=== PATIENT | female | born 1970 | race African-American/Black ===

== ENCOUNTER 2022-11-18 14:10 | Outpatient (REF) | payer MEDICAID, SELFPAY ==
--- NOTE | ~2022-11-18 | XR_ITS ---
EXAMINATION: XR LUMBOSACRAL SPINE WITH OBLIQUES CLINICAL INFORMATION: Dorsalgia COMPARISON: None available. TECHNIQUE: AP, both oblique, and lateral views of the lumbar spine. Lateral view of the lumbosacral junction. FINDINGS: There is maintained lumbar lordosis. There is loss of L4-L5 disc height with prosthesis at the L5-S1 disc level. There is a posterior hardware with bilateral pedicular screws at L5 and S1 vertebra with interconnecting rods. There is moderate stool seen throughout the colon. XR/XR lumbar spine 4V min IMPRESSION: Degenerative disc changes L4-L5 disc level with prosthesis at the L5-S1 disc level. There is a posterior hardware at L5-S1 vertebra with interconnecting rods.
== END 2022-11-18 14:11 | disposition home or self-care (01) ==
LOC: HO.HOSX 14:10
PROVIDERS: Visit Provider Physician Assistant
DX: M54.9 Dorsalgia, unspecified (principal)
CPT/HCPCS: 72110; 99212

== ENCOUNTER 2023-03-07 | Outpatient (REF) | payer MEDICAID, SELFPAY ==
--- NOTE | 2023-03-07 | ECG_ITS ---
Test Reason : preop Blood Pressure : / mmHG Vent. Rate : 063 BPM Atrial Rate : 063 BPM P-R Int : 184 ms QRS Dur : 086 ms QT Int : 412 ms P-R-T Axes : 049 015 011 degrees QTc Int : 421 ms Normal sinus rhythm Normal ECG No previous ECGs available Referred By: Es Taylor Electronically Signed By:KENAN MOYER
[2023-03-07 12:00] VITALS: BP 142/83; PULSE 70; RESP 16; O2SAT 99; BMI 32.7
--- NOTE | 2023-03-07 12:28 | P.CONAN_ITS ---
HPI - Anesthesia Eval Consult details Narrative: 52yo F for L4-L5 Transkambin Lumbar Interbody Fusion (ext of CTL screws), 03/20/23 No recent illness No CP/SOB with >4 mets PMFSH Active Problems Active Problems: All Active Problems (Updated 03/07/23 @ 12:25 by Esthela Cagle, RN) Back pain (Acute) Past Medical History Medical History (Updated 03/07/23 @ 12:25 by Esthela Cagle RN) Elevated cholesterol HTN (hypertension) Low back pain Right leg weakness Seasonal allergies Family History Family history of problems with anesthesia: No Surgical History Surgical History (Updated 03/07/23 @ 12:23 by Esthela Cagle RN) History of back surgery History of hysterectomy History of ovarian cystectomy Hx of breast reduction, elective History of Problems with Anesthesia: No Social History Social History Household Members Other:: daughter age-7 Are you a primary medicare insurance specialist to a significant other at home: Yes (daughter age 7, mom and sister will help post-op) Do you presently have visiting nurse or other home services: No Tobacco use type: Cigarette Use of substances other than those prescribed or required for medical reasons: No Have you been hit, kicked, punched, or otherwise hurt by someone within the past year? If so, by whom?: No Are you DNR?: No Advance Directives: No Advance Directives Information Provided: Yes Advance Directives on File: No Recently lost weight without trying: No Nutrition Risks: No Nutritional Risk Patient : No FDLMP: hx hysterectomy : No Poor oral hygiene: No Meds Allergies Allergy/AdvReac Type Severity Reaction Status Date / Time No Known Allergies Allergy Verified 03/07/23 12:20 Home Medications Medication Instructions Recorded Confirmed Last Taken Type amlodipine 10 mg tablet 5 mg PO DAILY 01/26/23 03/07/23 Unknown History chlorthalidone 25 mg tablet 25 mg PO DAILY 01/26/23 01/26/23 Unknown History losartan 25 mg tablet 25 mg PO DAILY 01/26/23 01/26/23 Unknown History montelukast 10 mg tablet 10 mg PO DAILY 01/26/23 01/26/23 Unknown History pregabalin 100 mg capsule 150 mg PO Q OTHER DAY 01/26/23 03/07/23 Unknown History indomethacin 25 mg capsule 25 mg PO DAILY 03/07/23 03/07/23 Unknown History tizanidine 4 mg tablet 2 - 4 mg PO Q8H 03/07/23 03/07/23 Unknown History Exam Exam Date and Time: March 07, 2023 1228 Height,Weight and Vital Signs: Height 5 ft 8 in Weight 97.5 kg Last Vital Signs Pulse 70 03/07/23 12:00 Resp 16 03/07/23 12:00 BP 142/83 H 03/07/23 12:00 Pulse Ox 99 03/07/23 12:00 O2 Del Method Room Air 03/07/23 12:00 Pertinent Lab Results Pertinent Lab Results: Lab Results 03/07/23 03/07/23 Range/Units 12:51 12:51 WBC 5.9 (4.8-10.8) X10*3/uL RBC 4.52 (4.20-5.50) X10*6/uL Hgb 13.3 (12.0-16.0) g/dl Hct 39.8 (37.0-47.0) % MCV 88.1 (80.0-98.0) fL MCH 29.4 (27.0-33.0) pg MCHC 33.4 (31.0-35.0) g/dl RDW 12.9 (11.0-16.0) % Plt Count 265 (160-400) X10*3/uL MPV 12.7 H (9.4-12.3) fL Absolute Nucleated RBC 0.020 H (0.0-0.012) X10*3/uL Nucleated RBC % (auto) 0.3 H (0.0-0.2) /100WBC Sodium 139 (135-145) mmol/L Potassium 3.8 (3.3-5.1) mmol/L Chloride 103 (96-108) mmol/L Carbon Dioxide 29 (22-29) mmol/L Anion Gap 11 L (12-20) BUN 9 (9-16) mg/dL Creatinine 0.89 (0.5-1.4) mg/dL Estim Creat Clear Calc 92.3 Estimated GFR > 60 Random Glucose 75 (60-115) mg/dL Calcium 9.6 (8.4-10.2) mg/dL Narrative Narrative: EKG 02/2023 Vent. Rate : 063 BPM ? ? Atrial Rate : 063 BPM ?? P-R Int : 184 ms? QRS Dur : 086 ms ? ? QT Int : 412 ms ? ? ? P-R-T Axes : 049 015 011 degrees ?? QTc Int : 421 ms ? Normal sinus rhythm Normal ECG No previous ECGs available Airway Mallampati Class: II TM Dist: >3cm Neck ROM: Full Loose/Missing/Broken Teeth: No (Capped molars) Heart: RRR Lungs: CTAB Assessment and Plan Assessment Anesthesia Assessment: Anesthesia Plan Discussed and PAT Visit Final Anesthetic Review Family History of Problems with Anesthesia: No History of Problems with Anesthesia: No
[2023-03-07 13:53] LABS: Hematocrit 39.8 % (37.0-47.0); Hemoglobin 13.3 g/dl (12.0-16.0); Mean Corpuscular HGB Conc 33.4 g/dl (31.0-35.0); Mean Corpuscular Hemoglobin 29.4 pg (27.0-33.0); Mean Corpuscular Volume 88.1 fL (80.0-98.0); Mean Platelet Volume 12.7 fL (9.4-12.3); NRBC Pct Auto 0.3 /100WBC (0.0-0.2); Platelet Count 265 X10*3/uL (160-400); Red Blood Count 4.52 X10*6/uL (4.20-5.50); Red Cell Distribution Width 12.9 % (11.0-16.0); White Blood Count 5.9 X10*3/uL (4.8-10.8)
[2023-03-07 14:28] LABS: Anion Gap 11 (12-20); Blood Urea Nitrogen 9 mg/dL (9-16); Calcium 9.6 mg/dL (8.4-10.2); Carbon Dioxide 29 mmol/L (22-29); Chloride 103 mmol/L (96-108); Creatinine Clr Calc Pharmacy 92.3; Estimated Glomerular Filt Rate > 60; Glucose Random 75 mg/dL (60-115); Potassium 3.8 mmol/L (3.3-5.1); Sodium 139 mmol/L (135-145)
== END 2023-03-07 00:01 ==
LOC: HO.PAT
PROVIDERS: Nurse Practitioner; Visit Provider Neurological Surgery
DX: R00.2 Palpitations (principal)
CPT/HCPCS: 36415; 80048; 85027; 93005

== ENCOUNTER 2023-12-28 14:09 | Outpatient (AMB) | payer MEDICAID, SELFPAY ==
--- NOTE | 2023-12-28 14:35 | A.SPINEOV_ITS ---
Intake Visit Reasons: Back pain Intake Note: Ms. Suazo is here today c/o back pain and to Discuss surgery. Ophthalmic Photographer Required: No Allergies No Known Allergies Allergy (Verified 12/28/23 14:37) Assessment & Plan Assessment & Plan (1) Back pain: Code(s): M54.9 - Dorsalgia, unspecified Category: Medical Plan An is a pleasant 53-year-old female who comes in today to discuss surgery and some for newer symptoms. She states that since her last visit she has been having an increase in her right-sided radiculopathy with newer onset intermittent numbness in the right foot. She states this is waxing/waning and does not happen very often. I informed her that this is likely related to progression of her adjacent segment issues at L4-5, and will be addressed by the surgery she previously discussed with DAVIDA Crane. I utilize the spine fusion model to for further discuss the transkambin approach, and answered all the patient's questions to the best of my ability. I provided the patient with a card for our practice that states the name of the fusion. I also completed a workload for our surgical services tech requesting that a date be picked for the patient to proceed with surgery. The patient understands and agrees. Total amount of time spent in this visit was 20 minutes in discussion of symptoms, surgical planning, and subsequent plan of care Oleg Bagley MD,PhD [facility] Coding Level of Care Code Tele New Pt Level 3 (89730) Diagnoses Back pain M54.9
== END 2023-12-28 14:49 | disposition home or self-care (01) ==
PROVIDERS: Visit Provider Physician Assistant
DX: M54.9 Dorsalgia, unspecified (principal)
CPT/HCPCS: 99213

== ENCOUNTER → 2023-12-28 14:09 | Outpatient (BNVA) | payer MEDICAID, SELFPAY | PROVIDERS: Visit Provider Physician Assistant | DX: M54.9 Dorsalgia, unspecified (principal) | CPT/HCPCS: 99212 ==

== ENCOUNTER 2024-04-16 08:39 | Inpatient (IN) | payer MEDICAID, SELFPAY ==
[2024-04-02 10:25] VITALS: BP 143/73; PULSE 73; RESP 18; O2SAT 99; BMI 30.9
[2024-04-02 11:24] LABS: Hematocrit 41.2 % (37.0-47.0); Hemoglobin 13.6 g/dl (12.0-16.0); Mean Corpuscular Hemoglobin 29.1 pg (27.0-33.0); Mean Platelet Volume 12.4 fL (9.4-12.3); Platelet Count 253 X10*3/uL (160-400); Red Blood Count 4.68 X10*6/uL (4.20-5.50); Red Cell Distribution Width 12.6 % (11.0-16.0); White Blood Count 5.5 X10*3/uL (4.8-10.8)
[2024-04-02 12:32] LABS: Anion Gap 13 (12-20); Blood Urea Nitrogen 22 mg/dL (9-16); Calcium 9.5 mg/dL (8.4-10.2); Carbon Dioxide 27 mmol/L (22-29); Chloride 105 mmol/L (96-108); Creatinine Clr Calc Pharmacy 79.7; Estimated Glomerular Filt Rate 59; Glucose Random 100 mg/dL (60-115); Potassium 4.4 mmol/L (3.3-5.1); Sodium 141 mmol/L (135-145)
[2024-04-16] VITALS (13 sets, daily range): BP systolic 108–141; BP diastolic 59–83; PULSE 58–97; RESP 14–16; TEMP 35.3–36.4; O2SAT 94–100; BMI 30.7
[2024-04-16] MEDS: Lactated Ringers 1,000 ML 100 ML IVCONT (08:55)
[2024-04-16] MEDS: methocarbamoL 750 MG TABLET PO (08:57)
[2024-04-16] MEDS: Gabapentin 300 MG CAPSULE PO (08:57)
--- NOTE | 2024-04-16 10:12 | PHA.MEDREC ---
Addendum entered by Bettie Fitch RPh 04/16/24 10:14: Reviewed by [facility] Original Note: Pharmacy Consult ? Medication Reconciliation Pharmacy has reviewed the medication reconciliation done by nurse.
--- NOTE | 2024-04-16 11:00 | P.CONAN_ITS ---
Documented by User: Es Taylor NP 04/12/24 10:04 HPI - Anesthesia Eval Consult details Narrative: 53yo F for L4-5 Transkambin Lumbar Interbody Fusion, 04/16/24 No recent illness No CP/SOB with work as [employer] Active Problems Active Problems: All Active Problems Back pain (Acute) Past Medical History Medical History (Updated 04/02/24 @ 10:17 by Rosita Melgar RN) Anemia Vitamin D deficiency Osteoarthritis Constipation Allergic rhinitis Anxiety Right leg weakness Seasonal allergies Low back pain Elevated cholesterol HTN (hypertension) Family History Family history of problems with anesthesia: No Surgical History Surgical History H/O colonoscopy History of total right knee replacement History of ovarian cystectomy Hx of breast reduction, elective History of back surgery History of hysterectomy History of Problems with Anesthesia: No Social History Social History Household Members Other:: daughter age-7 Are you a primary patient care coordinator to a significant other at home: Yes Do you presently have visiting nurse or other home services: No Patient Tobacco Use Status: Former Tobacco user Tobacco use type: Cigarette Use of substances other than those prescribed or required for medical reasons: No Have you been hit, kicked, punched, or otherwise hurt by someone within the past year? If so, by whom?: No Are you DNR?: No Advance Directives: No Advance Directives Information Provided: No Advance Directives on File: No Recently lost weight without trying: No Eating poorly because of decreased appetite: No Nutrition Risks: No Nutritional Risk Patient : No : No Poor oral hygiene: Yes (crowns in the upper and one lower) Meds Allergies Allergy/AdvReac Type Severity Reaction Status Date / Time mold Allergy Hives Verified 04/16/24 08:45 Home Medications ?Medication ?Instructions ?Recorded ?Confirmed ?Last Taken ?Type amlodipine 10 mg tablet 10 mg PO DAILY 01/26/23 04/16/24 04/16/24 History chlorthalidone 25 mg tablet 25 mg PO DAILY 01/26/23 04/16/24 04/16/24 History losartan 25 mg tablet 25 mg PO DAILY 01/26/23 04/16/24 04/12/24 History montelukast 10 mg tablet 10 mg PO DAILY PRN Allergy Symptoms 01/26/23 04/16/24 04/02/24 History pregabalin 100 mg capsule 150 mg PO BID 01/26/23 04/16/24 04/16/24 History indomethacin 25 mg capsule 25 mg PO DAILY 03/07/23 04/16/24 04/08/24 History tizanidine 4 mg tablet 2 - 4 mg PO Q8H PRN Muscle Spasm 03/07/23 04/16/24 04/12/24 History atorvastatin 20 mg tablet 20 mg PO QPM 04/02/24 04/16/24 04/12/24 History tramadol 50 mg tablet 50 mg PO Q12H 04/02/24 04/16/24 04/02/24 History escitalopram oxalate 20 mg tablet 20 mg PO DAILY 04/16/24 04/16/24 03/24/24 History Exam Height,Weight and Vital Signs: Height 5 ft 8 in Weight 92.079 kg Last Vital Signs Pulse 73 04/02/24 10:25 Resp 18 04/02/24 10:25 BP 143/73 H 04/02/24 10:25 Pulse Ox 99 04/02/24 10:25 O2 Del Method Room Air 04/02/24 10:25 Pertinent Lab Results Pertinent Lab Results: Lab Results 04/02/24 04/02/24 Range/Units 11:03 11:12 WBC 5.5 (4.8-10.8) X10*3/uL RBC 4.68 (4.20-5.50) X10*6/uL Hgb 13.6 (12.0-16.0) g/dl Hct 41.2 (37.0-47.0) % MCV 88.0 (80.0-98.0) fL MCH 29.1 (27.0-33.0) pg MCHC 33.0 (31.0-35.0) g/dl RDW 12.6 (11.0-16.0) % Plt Count 253 (160-400) X10*3/uL MPV 12.4 H (9.4-12.3) fL Absolute Nucleated RBC 0.000 (0.0-0.012) X10*3/uL Nucleated RBC % (auto) 0.0 (0.0-0.2) /100WBC Sodium 141 (135-145) mmol/L Potassium 4.4 (3.3-5.1) mmol/L Chloride 105 (96-108) mmol/L Carbon Dioxide 27 (22-29) mmol/L Anion Gap 13 (12-20) BUN 22 H (9-16) mg/dL Creatinine 0.99 (0.5-1.4) mg/dL Estim Creat Clear Calc 79.7 Estimated GFR 59 Random Glucose 100 (60-115) mg/dL Calcium 9.5 (8.4-10.2) mg/dL Blood Type B Positive Antibody Screen NEGATIVE Narrative Narrative: EKG 2022 Vent. Rate : 063 BPM Atrial Rate : 063 BPM P-R Int : 184 ms QRS Dur : 086 ms QT Int : 412 ms P-R-T Axes : 049 015 011 degrees QTc Int : 421 ms Normal sinus rhythm Normal ECG No previous ECGs available Airway Mallampati Class: II TM Dist: >3cm Neck ROM: Full Loose/Missing/Broken Teeth: No (capped molars) Heart: RRR Lungs: CTAB Assessment and Plan Assessment Anesthesia Assessment: Anesthesia Plan Discussed and PAT Visit Final Anesthetic Review Family History of Problems with Anesthesia: No History of Problems with Anesthesia: No Documented by User: Ana Abreu DO 04/16/24 11:00 [facility] Past Medical History Medical History (Updated 04/02/24 @ 10:17 by Rosita Melgar RN) Anemia Vitamin D deficiency Osteoarthritis Constipation Allergic rhinitis Anxiety Right leg weakness Seasonal allergies Low back pain Elevated cholesterol HTN (hypertension) Family History Family history of problems with anesthesia: No Surgical History Surgical History H/O colonoscopy History of total right knee replacement History of ovarian cystectomy Hx of breast reduction, elective History of back surgery History of hysterectomy History of Problems with Anesthesia: No Social History Social History Household Members Other:: daughter age-7 Are you a primary patient care coordinator to a significant other at home: Yes Do you presently have visiting nurse or other home services: No Patient Tobacco Use Status: Former Tobacco user Tobacco use type: Cigarette Use of substances other than those prescribed or required for medical reasons: No Have you been hit, kicked, punched, or otherwise hurt by someone within the past year? If so, by whom?: No Are you DNR?: No Advance Directives: No Advance Directives Information Provided: No Advance Directives on File: No Recently lost weight without trying: No Eating poorly because of decreased appetite: No Nutrition Risks: No Nutritional Risk Patient : No : No Poor oral hygiene: Yes (crowns in the upper and one lower) Meds Allergies Allergy/AdvReac Type Severity Reaction Status Date / Time mold Allergy Hives Verified 04/16/24 08:45 Home Medications ?Medication ?Instructions ?Recorded ?Confirmed ?Last Taken ?Type amlodipine 10 mg tablet 10 mg PO DAILY 01/26/23 04/16/24 04/16/24 History chlorthalidone 25 mg tablet 25 mg PO DAILY 01/26/23 04/16/24 04/16/24 History losartan 25 mg tablet 25 mg PO DAILY 01/26/23 04/16/24 04/12/24 History montelukast 10 mg tablet 10 mg PO DAILY PRN Allergy Symptoms 01/26/23 04/16/24 04/02/24 History pregabalin 100 mg capsule 150 mg PO BID 01/26/23 04/16/24 04/16/24 History indomethacin 25 mg capsule 25 mg PO DAILY 03/07/23 04/16/24 04/08/24 History tizanidine 4 mg tablet 2 - 4 mg PO Q8H PRN Muscle Spasm 03/07/23 04/16/24 04/12/24 History atorvastatin 20 mg tablet 20 mg PO QPM 04/02/24 04/16/24 04/12/24 History tramadol 50 mg tablet 50 mg PO Q12H 04/02/24 04/16/24 04/02/24 History escitalopram oxalate 20 mg tablet 20 mg PO DAILY 04/16/24 04/16/24 03/24/24 History Exam Exam Date and Time: 04/16/24 1100 Height,Weight and Vital Signs: Height 5 ft 8 in Weight 92.079 kg Last Vital Signs Pulse 73 04/02/24 10:25 Resp 18 04/02/24 10:25 BP 143/73 H 04/02/24 10:25 Pulse Ox 99 04/02/24 10:25 O2 Del Method Room Air 04/02/24 10:25 Vital Signs Pulse Rate 73 04/02/24 10:25 Respiratory Rate 18 04/02/24 10:25 Blood Pressure 143/73 H 04/02/24 10:25 Pulse Oximetry 99 04/02/24 10:25 Oxygen Delivery Method Room Air 04/02/24 10:25 Temperature 97.0 F 04/16/24 08:46 Pulse Rate 58 04/16/24 08:46 Respiratory Rate 16 04/16/24 08:46 Blood Pressure 127/71 04/16/24 08:46 Pulse Oximetry 99 04/16/24 08:46 Oxygen Delivery Method Room Air 04/16/24 08:46 Airway Mallampati Class: II TM Dist: >3cm Neck ROM: Full Loose/Missing/Broken Teeth: No (capped molars) Heart: S1S2 Assessment and Plan Assessment Anesthesia Assessment: Anesthesia Plan Discussed and Chart Reviewed Final Anesthetic Review Family History of Problems with Anesthesia: No History of Problems with Anesthesia: No NPO: Yes ASA Class: II Final Preanesthetic Review: No Changes in Pt Med Stat, Meds/Allgs Chart Reviewed, Consent Obtained/Reviewed and Anes Risks/Benef Reviewed Patient Risk: Low Procedure Risk: Intermediate Anesthetic Plan Anesthetic Plan: GA and Agree w/ Assess. and Plan Disposition: Standard PACU
--- NOTE | 2024-04-16 12:01 | MHC.SHP ---
Pre-Procedural Eval Section A - 24 Hr Update-Section A only Date of Service: 04/16/24 The patient is an INPATIENT: No Changes since office visit: No Cold of Flu in the past 2 weeks, No New Medical Problems, No Changes in Medication and No Patient answered all questions The patient has been examined within 24 hours of the surgical procedure. The History & Physical has been completed within 30 days and I have reviewed it.: No Section B - Complete if H&P > 30 days Chief Complaint: L4-5 transkambin fusion Allergies: Allergies Allergy/AdvReac Type Severity Reaction Status Date / Time mold Allergy Hives Verified 04/16/24 08:45 Review of Systems Sugical H&P ROS: Negative: Constitution, Cardiovascular, Respiratory, Neurological, Psychiatric, Hem-Onc, Allergic/Immunologic, Gastrointestinal, Genitourinary, Musculoskeletal, Integumentary, Endocrine and Eyes/Ears/Nose/Throat Exam Surgical H&P Exam: Normal: HEENT, Normal: Heart, Normal: Lungs, Normal: Extremities, Normal: Abdomen, Normal: Skin and Normal: Neurological (aao x 3 ) Plan Diagnosis/Plan: Unchanged L4-5 transkambin oblique lumbar interbody fusion Time Spent With Patient Time: Total time managing care of this patient today __5__ minutes.
--- NOTE | 2024-04-16 13:52 | P.OP_ITS ---
Operative Note Operative Note Date of Service: 04/16/24 Narrative: Preoperative diagnosis: 1) adjacent lumbar degenerative disc disease 2) right lumbar radiculopathy Postprocedure diagnosis: 1) same as above Procedure: 1) L4-5 oblique lateral lumbar interbody fusion with discectomy, preparation of the endplates and placement of a titanium bullet cage packed with allograft, anterior to the transverse process in modified prone position, with intraoperative biplanar fluoroscopy imaging and electrophysiological monitoring 2) removal previous placed S1 screws; insertion bilateral L4 screws; L4-5 posterior lateral instrumentation and fusion with intraoperative biplanar fluoroscopic imaging and electrophysiological monitoring 3 injection of 10 cc of Exparel at the transverse process for a muscular erector spinae block and additional Exparel in paravertebral tissue for postop man agement Consent Informed Consent was obtained for this operation. I have explained the nature, purpose and benefits of the operation. I have discussed the risks and benefit of the operation including possible complications or adverse events with patient/family. Alternative(s) were discussed with the patient with their relative benefits and risks as well as the consequences of not accepting the op eration were included in obtaining consent. Surgeon: CLEMENTE WOOD MD, PHD Procedure Assisted By: sita Ratliff Description of Procedure: This is a complex surgery on the lumbar spine and an human resources assistant as needed for safety of the surgery for setup of instrumentation, retraction and closing. History: This patient had a previous L5-S1 transforaminal lumbar interbody fusion done. She presented with adjacent degenerative disc disease and right lumbar radiculopathy. The patient was offered an oblique lumbar lateral interbody fusion followed by a posterior lateral instrumented fusion L4-5. The procedure and complications were explained and the patient was consented. Procedure: The patient was brought to the operating room and endotracheally intubated. The patient was positioned on the Derek spine table in a modified prone position for ease of access from the left side.. 2C arms were installed for fluoroscopy. Prepping and draping was done followed by timeout. The landmarks, including spinal processes, transverse processes, disc space, endplates and pedicles are identified and marked. The following steps are taken for each specified level: L4-5 level: Cage size 10 mm high and 3rd mm long titanium . The patient was turned using the rotation of the surgical table so a near direct anterior lateral approach to the lumbar spine could be achieved. A small inci kenneth was then made superior to the mid iliac crest and then using biplanar fluoroscopy visualization, under electrophysiological monitoring and stimulation, we introduced an electrophysiological probe through the retroperitoneal space into the desired disc anterior to the transverse process and then passed it into the disc space after finding a silent window. Initially, I was not able to find a silent window on the left side. I tried from the right cerebral was unable to find a safe window on this side. Therefore I returned to the left side and eventually was able to find a silent level with no response at 5 or below. The sleeve was retained and the probe was removed, then the K wire was passed sequentially into the disc space. A dilating tube was then passed along the same route. Following this, a working channel, a working channel was then passed sequentially into the disc space. The working channel was manually held in position while a series of disc cleaning tools were passed through the channel to remove the affected disc under clear and direct biplanar fluoroscopic visualization, decompress the nerve roots and equal corticated vertebral endplates at this segment. Arthrodesis of the intervertebral space via an anterior retroperitoneal exposure was achieved through Kambin's [place] and lateral extraforaminal space. Allograft was added into the anterior disc space. The working channel was then removed. A titanium interbody cage tightly packed with allograft was then inserted into the midportion of the intervertebral disc space over a K-wire under biplanar fluoroscopic visualization and intraoperative neuro monitoring. The inter pedicular and intradiscal space was significantly enlarged and disc height was restored to worked normal anatomy there for releasing pressure on the nerve roots visual largely the spinal canal and lateral recess as well as foramen were bilateral decompressed and all bones were confined to the borders of the disc space . The following steps are then taken for each specified level: L4 level: Bilateral L4 screws with a diameter of 6.5 x 45 mm. The posterolateral fusion is initiated after the patient is rotated to a true prone position. The entry point to the pedicle is identified in the AP and lateral views and then the skin incision is injected with local anesthetic. We entered the pedicle with the pediguard tap after which a K-wire was introduced into the vertebral body. Additionally, I used a small periosteal decorticator along the screws to refresh the surface of the bone and facet in preparation for the posterolateral fusion. Over the K-wire we insert pedicle screws bilaterally in L4. Then the paramedian incisions were opened to expose the underlying L5-S1 posterior instrumentation. The locking caps were removed as well as the rods. The bilateral S1 screws were removed. Then the newly L4 pedicle screws were connected to the previous placed L5 pedicle screws with a 45 mm karishma bilaterally. Final x-rays in AP and lateral projection showed satisfactory position of the interbody device and posterior instrumentation. Posterolateral fusion was completed by laying down allograft from L4-L5. Hemostasis was done. The paramedian incisions and flank incisions were closed with a 2-0 Vicryl for the fascia 3-0 Vicryl for the subdermal layer. Steri-Strips were used to approximate the incisions. An OpSite with Tegaderm was used to cover the incisions. All sponge and needle counts were correct. The patient was extubated and transported in a stable condition to the recovery room. This procedure was done with the aid of a physician human resources assistant as a qualified resident was not available. Anesthesia: General Estimated Blood Loss (ml): 40 mL Specimen: None Duration of Surgery: 1hr 15 min Postoperative Plan: Admit to inpatient
[2024-04-16] MEDS: oxyCODONE HCl Immed Release 5 MG TABLET PO (15:56)
[2024-04-16] MEDS: 0.9 % Sodium Chloride 1,000 ML 75 ML IVCONT (17:36)
[2024-04-16] MEDS: ceFAZolin Sodium/Dextrose,Iso 2 GM/50 ML PIGGYBACK IV ×2 (17:42→23:04)
[2024-04-16] MEDS: Acetaminophen 1,000 MG/100 ML PIGGYBACK 400 MG IV ×2 (18:22→23:59)
[2024-04-16] MEDS: Atorvastatin Calcium 20 MG TABLET PO (20:02)
[2024-04-16] MEDS: Ketorolac Tromethamine 15 MG/ML VIAL IVPUSH (20:02)
[2024-04-16] MEDS: Docusate Sodium 100 MG CAPSULE PO (20:03)
[2024-04-16] MEDS: hydrOXYzine HCL 25 MG TABLET PO (20:03)
[2024-04-16] MEDS: Pregabalin 150 MG CAPSULE PO (20:03)
[2024-04-17] MEDS: Ketorolac Tromethamine 15 MG/ML VIAL IVPUSH ×2 (02:13→08:23)
[2024-04-17 03:18] VITALS: BP 112/59; PULSE 64; RESP 16; TEMP 35.8; O2SAT 94
[2024-04-17] MEDS: ceFAZolin Sodium/Dextrose,Iso 2 GM/50 ML PIGGYBACK IV (05:05)
[2024-04-17] MEDS: Acetaminophen 1,000 MG/100 ML PIGGYBACK 400 MG IV (05:38)
--- NOTE | 2024-04-17 06:58 | PM.DS ---
DS: Providers Provider Date of Service: 04/17/24 Date of admission: 04/16/24 08:39 Primary care physician: Erichtatim Physician DS: Summary Time Attestation Discharge Coordination Time (in mins): 15 Quality: Safe Use of Opioids Does Pt have an Active Cancer Diagnosis on the Problem List?: No Quality: Stroke Does the patient have a stroke diagnosis?: No Physical Exam Vital Signs: Vital Signs: Last Vital Signs Temp 96.5 F L 04/17/24 03:18 Pulse 64 04/17/24 03:18 Resp 16 04/17/24 03:18 BP 112/59 L 04/17/24 03:18 Pulse Ox 94 04/17/24 03:18 O2 Del Method Room Air 04/17/24 03:18 O2 Flow Rate 5 04/16/24 15:01 BMI result Body Mass Index 30.7 Discharge Plan Discharge Anticipated Discharge Date/Time: 04/17/24 06:58 Patient Disposition: Home, Self-Care Discharge Diagnosis: S/P L4-5 Lumbar fusion Referrals: Physician,Erichtaff [Primary Care Provider] - 1 Week Discharge Medications: New oxycodone 5 mg tablet 5 mg PO Q6H PRN (Reason: severe pain (scale score 7-10)) Qty: 30 0RF Rx Instructions: Partial Fill upon patient request. hydroxyzine HCl 25 mg tablet 25 mg PO TID Qty: 30 0RF methocarbamol 750 mg tablet 750 mg PO TID Qty: 30 0RF Continued chlorthalidone 25 mg tablet 25 mg PO DAILY amlodipine 10 mg tablet 10 mg PO DAILY losartan 25 mg tablet 25 mg PO DAILY montelukast 10 mg tablet 10 mg PO DAILY PRN (Reason: Allergy Symptoms) pregabalin 100 mg capsule 150 mg PO BID tizanidine 4 mg tablet 2 - 4 mg PO Q8H PRN (Reason: Muscle Spasm) indomethacin 25 mg capsule 25 mg PO DAILY atorvastatin 20 mg tablet 20 mg PO QPM tramadol 50 mg tablet 50 mg PO Q12H escitalopram oxalate 20 mg tablet 20 mg PO DAILY Discharge Orders: Discharge Order (Routine); Ordered 04/17/24 Ordered By: Oleg Howard Diet: Advance to usual diet Activity on Discharge: As tolerated Stand Alone Forms: Patient Portal Discharge page Print Language: Slovenian Activity Restrictions/Additional Instructions: After your spinal surgery we ask you to observe the following restrictions/guidelines: Activity: With lumbar fusion surgery it is normal to have days in the first couple of weeks where you have increased leg pain. This usually lasts 1-2 days and self resolves with the continuation of medication. Attempt to stay mobile and continue activity as tolerated. It is normal to feel some discomfort as you increase your activity, but that will improve with time. We ask you avoid heavy lifting or activities that cause pain. As a general rule, 8lbs is a safe limit for lifting right after surgery. Walk as much as you feel comfortable but not to exhaustion. You will feel extra tired the first few days after surgery. Stay well hydrated. It is OK to walk up and down stairs You may return to driving when you are off narcotics (such as vicodin, oxycodone, dilaudid, etc), and you are back to normal functional capacity. If you have any concerns please check with office before driving. Return to work is specific to each patient and each surgery, so please speak with your doctor/PA at first follow up. Please bring paperwork such as FMLA at that time if you need it filled out. Medications: We will be sending in 3 medications for you to take postoperatively to help with pain control. Hydroxyzine 25 mg 3 times daily, oxycodone 5 mg every 6 hours, methocarbamol 750 mg 3 times daily. Continue taking your Lyrica as prescribed as well. We will give you a short supply of narcotics after surgery (usually one weeks worth). ??Please use this for breakthrough pain that is refractory to the Tylenol ibuprofen and gabapentin. If you need more please call the office but do not use more than prescribed. You will need to give our office 48 hours notice if you need narcotics refilled and we do not fill narcotics on weekends or evenings. If you are on a narcotic, it is a good idea to take a stool softener such as colace or senna to avoid constipation If you take blood thinner such as aspirin, Plavix, Coumadin, Effient, Eliquis etc for conditions such as Afib, DVT, Pulmonary embolus, coronary disease, stents etc please speak with your surgeon about specific details as to when you can resume these medications. You can resume NSAIDs on post op day 1 (eg: Motrin, Naproxen, etc). Follow up: Please call the office, , after surgery to arrange a 3 week follow up for wound check. Wound Care: You may remove your dressing on the first day after surgery. ?You may ?leave open to air. Please do not remove the steri strips underneath. they will fall off on their own in one week. IT IS NORMAL FOR THE WOUND TO OOZE OR BE BLOODY FOR A FEW DAYS AFTER SURGERY. ?IF THIS HAPPENS JUST PLACE NEW DRESSING OVER IT TO AVOID STAINING CLOTHES. You may shower on post op day # 1 We ask that you do not let the water soak the wound. If it does get wet, just towel dry lightly. Please do not scrub your incision or place any type of chemical/ointment on the wound. No tub baths, pools or jacuzzis for one month. If you have any leaking or redness from your wound, or fevers, please call office Care Plan Goals: Returned to normal activity as tolerated Health Concerns: None Plan of Treatment: Follow-up in clinic in 2-3 weeks Assessment: POD: 1 Procedure: L4-5 Transkambin lumbar fusion An was seen sitting in bed on this morning. She reports she is up walking around is otherwise doing well. She feels his symptoms are much better than pre-operatively. She reports little to no pain at this time, and reports good relief with current pain medication. She is voiding well & tolerating diet. Afebrile, vital signs stable. Patient is calm and conversational on exam. In NAD. Full strength 5/5 LE. Back dressings have some staining without signs of hematoma. No active sanguineous drainage. Area is dry. Plan: Patient meets criteria to be medically discharged home. She was seen at bedside with Dr. Bagley. I sent in 3 medications to the pharmacy [place] [facility] She can pick them up at discharge. Oleg Bagley MD,PhD [facility]
[2024-04-17 07:18] VITALS: BP 108/61; PULSE 69; RESP 16; TEMP 37.1; O2SAT 97
--- NOTE | 2024-04-17 07:28 | HO.NEUROPN_ITS ---
Neurosurgery Operative Note Date of Service: 04/17/24 Narrative: POD: 1 Procedure: L4-5 Transkambin lumbar fusion An was seen sitting in bed on 3-[address] this morning. She reports she is up walking around is otherwise doing well. She feels his symptoms are much better than pre-operatively. She reports little to no pain at this time, and reports good relief with current pain medication. She is voiding well & tolerating diet. Afebrile, vital signs stable. Patient is calm and conversational on exam. In NAD. Full strength 5/5 LE. Back dressings have some staining without signs of hematoma. No active sanguineous drainage. Area is dry. Plan: Patient meets criteria to be medically discharged home. She was seen at bedside with Dr. Bagley. I sent in 3 medications to the pharmacy [place] [facility] She can pick them up at discharge. Oleg Bagley MD,PhD [facility]
[2024-04-17] MEDS: Escitalopram Oxalate 20 MG TABLET PO (08:23)
[2024-04-17] MEDS: Losartan Potassium 25 MG TABLET PO (08:23)
[2024-04-17] MEDS: Pregabalin 150 MG CAPSULE PO (08:23)
[2024-04-17] MEDS: hydroCHLOROthiazide 25 MG TABLET PO (08:23)
[2024-04-17] MEDS: hydrOXYzine HCL 25 MG TABLET PO (08:23)
[2024-04-17] MEDS: amLODIPine Besylate 10 MG TABLET PO (08:23)
[2024-04-17] MEDS: Docusate Sodium 100 MG CAPSULE PO (08:23)
--- NOTE | 2024-04-17 08:55 | MHC.CM.PN ---
pt dcd home self care
== END 2024-04-17 12:32 | disposition home or self-care (01) | DRG 304 ==
LOC: HO.SSSA 12:03 → HO.S3 16:18
PROVIDERS: Neurological Surgery; Nurse Practitioner; Admitting Provider Physician Assistant; Visit Provider Physician Assistant
PROC: 0SG00A0 Fusion of Lumbar Vertebral Joint with Interbody Fusion Device, Anterior Approach, Anterior Column, Open Approach (ICD-10-PCS; principal; 2024-04-16 11:10)
DX: M51.16 Intervertebral disc disorders with radiculopathy, lumbar region (principal); Z87.891 Personal history of nicotine dependence; Z79.899 Other long term (current) drug therapy
CPT/HCPCS: 36415; 80048; 85027; 86850; 86900; 86901; 97161; C1713; C1889; C9290; J0131; J0665; J0690; J1100; J1885; J2405; J2704; J3010; L8699

== ENCOUNTER → 2024-04-16 08:39 | Outpatient (BNV) | payer MEDICAID, SELFPAY | PROVIDERS: Admitting Provider Physician Assistant; Visit Provider Neurological Surgery | DX: Z48.89 Encounter for other specified surgical aftercare (principal) | CPT/HCPCS: 20930; 22558; 22612; 22840; 22853; 63056; 99024; 99499 ==

== ENCOUNTER 2024-05-10 14:34 | Outpatient (AMB) | payer MEDICAID, SELFPAY ==
--- NOTE | 2024-05-10 14:37 | HO.SPINEOV ---
Intake Visit Reasons: 1st post op Intake Note: Ms. Suazo is here for her 1st post-op appointment. Mixer Operator Hot Metal Required: No Allergies mold Allergy (Verified 04/16/24 08:45) Hives Assessment & Plan Assessment & Plan (1) Status post lumbar spinal arthrodesis: Code(s): Z98.1 - Arthrodesis status Category: Medical Plan: Dear colleague, On 05/10/2024 I saw for a 1st postoperative visit An Suazo. She underwent a minimally invasive transKambin L4-5 fusion. She states that her preoperative symptoms have disappeared. Incisions are healed. This is a fantastic outcome. I would like to follow-up in 6 weeks with a new set of x-rays. Thank you for letting me take care of your patient. Hermilo Bagley MD, PhD Spine Fellowship Trained Neurosurgeon Director, [facility] Coding Level of Care Code Global (22426) Diagnoses Status post lumbar spinal arthrodesis Z98.1
== END 2024-05-10 14:56 | disposition home or self-care (01) ==
PROVIDERS: Visit Provider Neurological Surgery
DX: Z98.1 Arthrodesis status (principal)
CPT/HCPCS: 99024

== ENCOUNTER → 2024-05-10 14:34 | Outpatient (BNVA) | payer MEDICAID, SELFPAY | PROVIDERS: Visit Provider Neurological Surgery | DX: Z98.1 Arthrodesis status (principal) | CPT/HCPCS: 99212 ==

== ENCOUNTER 2024-06-24 13:44 | Outpatient (AMB) | payer MEDICAID, SELFPAY ==
--- NOTE | 2024-06-24 14:11 | HO.SPINEOV ---
Intake Visit Reasons: 2nd post op with xrays Intake Note: Ms. Suazo is here today for 2nd post op visit with xrays Catering Convention Services Manager Required: No Allergies mold Allergy (Verified 04/16/24 08:45) Hives Assessment & Plan Assessment & Plan (1) Status post lumbar spinal arthrodesis: Code(s): Z98.1 - Arthrodesis status Category: Medical Plan: Procedure: L4-5 KATTY Nolan comes in today for a 2nd postoperative visit after having an L4-5 lumbar fusion completed by our service a little over 2 months ago. She reports she has been healing very well since the surgery and is very satisfied overall. She reports little to no pain aside from the occasional healing pain/twinges. She has been trying to stay mobile, complete all of her ADLs, and return to regular living. We reviewed her x-ray imaging during this visit today which shows stable placement of her surgical instrumentation with no notable changes from fluoroscopy. No new neurological deficits. She ambulates well and rises from seated position without difficulty. She has full strength in her lower extremities. Her posterior incision sites appear closed and well healed. I would like to follow up with her again in 1 year for a subsequent postoperative visit. I will be placing order for a CT scan roughly 10 months out to evaluate for fusion progress at the site of surgery. Oleg Bagley MD,PhD [facility] Orders: Orders XR lumbar spine 4V min Today Z98.1 - Arthrodesis status CT lumbar spine wo IV con 02/13/25 Z98.1 - Arthrodesis status Coding Level of Care Code Global (59087) Diagnoses Status post lumbar spinal arthrodesis Z98.1
== END 2024-06-24 14:32 | disposition home or self-care (01) ==
PROVIDERS: Visit Provider Physician Assistant
DX: Z98.1 Arthrodesis status (principal)
CPT/HCPCS: 99024

== ENCOUNTER 2024-06-24 13:44 | Outpatient (REF) | payer MEDICAID, SELFPAY | END 2024-06-24 13:45 | disposition home or self-care (01) | LOC: HO.HOSX 13:44 | PROVIDERS: Visit Provider Physician Assistant | DX: Z98.1 Arthrodesis status (principal) | CPT/HCPCS: 72110; 99212 ==

== ENCOUNTER 2024-11-27 14:46 | Outpatient (REF) | payer MEDICAID, SELFPAY ==
--- NOTE | ~2024-11-27 | XR_ITS ---
EXAMINATION: X-ray lumbar spine 4 views CLINICAL INFORMATION: Arthrodesis status. TECHNIQUE: AP and lateral views. Lateral views in flexion and extension position. COMPARISON: June 24, 2024 FINDINGS: Metallic screws through the pedicles of L4 and L5 bilaterally. Intervertebral disc spacer placement at L4-5 with the metallic consistent and a radiopaque intervertebral disc spacer at L5-S1. No acute cortical disruption or malalignment position or flexion and/or extension. Questionable focal punctate calcification right kidney shadow. Abundant stool, large intestine. XR/XR lumbar spine 4V min IMPRESSION: Status post posterior fusion L4-5 and intervertebral disc spacer placement at L4-5. Without acute fracture or listhesis or gross instability. Stable Electronically signed by: Ravinder Ramos MD 11/27/2024 03:50 PM EDT
--- OUTSIDE RECORDS SUMMARY | 2024-11-27 16:22 | XMS_ITS | Clinical Summary ---
Author Organization [facility] Address [address] [place] [phone] Care Team Providers Care Insulation Cupola Operator Name Role Phone Nithya Cho MD Primary Care Provider [phone] Social History Tobacco Use Types Packs/Day Years [...] age to complete this topic Care Teams Insulation Cupola Operator Relationship Specialty Start Date End Date Nithya Cho MD [address] [facility] [address] [place] [id number] PCP - General Family Medicine 05/13/20
--- OUTSIDE RECORDS SUMMARY | 2024-11-27 16:22 | XMS_ITS | Clinical Summary ---
Author Organization [facility] Address [address] [place] [address] Care Team Providers Care Music Publisher Name Role Phone Nithya Cho MD Primary [...] age to complete this topic Care Teams Music Publisher Relationship Specialty Start Date End Date Nithya Cho MD [address] [place] [phone] PCP - General Family Medicine 05/13/20
== END 2024-11-27 14:47 | disposition home or self-care (01) ==
LOC: HO.HOSX 14:46
PROVIDERS: Visit Provider Physician Assistant
DX: Z98.1 Arthrodesis status (principal)
CPT/HCPCS: 72110; 99212

== ENCOUNTER 2024-11-27 14:46 | Outpatient (AMB) | payer MEDICAID, SELFPAY ==
--- NOTE | 2024-11-27 15:20 | HO.SPINEOV ---
Intake Visit Reasons: LBP sx 04/16/24 Intake Note: Ms. Suazo is here today c/o low back pain after surgery Assistant Product Manager Required: No Allergies mold Allergy (Verified 11/27/24 15:20) Hives Assessment & Plan Assessment & Plan (1) Status post lumbar spinal arthrodesis: Code(s): Z98.1 - Arthrodesis status Category: Medical Plan Mrs Suazo is here in follow-up. She underwent an L4-5 lumbar fusion back in March of last year. She came in because she has been having some pain in the upper to middle lumbar region. Specifically when standing. 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 I took x-rays and everything looks overall very good. Nothing is moving with flexion or extension. There is no significant disc degeneration above at the L3-4 level. I reassured her that I think a lot of what she is feeling is just muscle soreness from her prolonged shifts. Unfortunately there is not a lot she can do about that. I would like to see her back in 6 months just to check on things. We will get an x-ray at that time as well. Total amount of time spent in this visit was 20 minutes in discussion of symptoms, Lumbar imaging results and subsequent plan of care Efra Bagley MD,PhD [facility] Orders: Orders XR lumbar spine 4V min Today Z98.1 - Arthrodesis status Coding Level of Care Code Est Pt Level 3 (64285) Diagnoses Status post lumbar spinal arthrodesis Z98.1
--- OUTSIDE RECORDS SUMMARY | 2024-11-27 15:53 | XMS_ITS | Clinical Summary ---
Author Organization [facility] Address [id number] [place] [id number] Care Team Providers Care Order Puller Name Role Phone Nithya Cho MD Primary Care Provider [phone] Social History Tobacco Use Types Packs/Day Years Used Date Smoking Tobacco: Never Assessed Comments Unknown Sex and Gender Information Value Date Recorded Sex Assigned at Not on file Legal Sex Female 11:37 AM EST Gender Identity Not on file Sexual Orientation Not on file Plan of Treatment Health Maintenance Due Date Last Done Comments Breast Cancer Screening 1972 DTaP,Tdap,and Td Vaccines (1 - Tdap) 1991 Hepatitis B Vaccines (1 of 3 - 19+ 3-dose series) 1991 Cervical Cancer Screening: P ap Smear 1993 Pneumococcal Vaccine: 50+ Ye ars (1 of 1 - PCV) 2022 Zoster Vaccines (1 of 2) 2022 COVID-19 Vaccine ( - 2023-2 5 season) 2024 Influenza Vaccine (Season Ended) 2025 HIB Vaccines Aged Out No longer eligi ble based on patient's age to complete this topic HPV Vaccines Aged Out No longer eligi ble based on patient's age to complete this topic Hepatitis A Vaccines Aged Out No long er eligible based on patient's age to complete this topic IPV Vaccines Aged Out No longer eligi ble based on patient's age to complete this topic MMR Vaccines Aged Out No longer eligi ble based on patient's age to complete this topic Meningococcal ACWY Vaccine Aged Out N o longer eligible based on patient's age to complete this topic Meningococcal B Vaccine Aged Out No l onger eligible based on patient's age to complete this topic Pneumococcal Vaccine: Pediat rics (0 to 5 Years) and At-Risk Patients (6 to 64 Years) Aged Out No longer eligible b ased on patient's age to complete this topic RSV Immunization Patients Un denisse 20 months Aged Out No longer eligible b ased on patient's age to complete this topic Varicella Vaccines Aged Out No longer eligible based on patient's age to complete this topic Care Teams Order Puller Relationship Specialty Start Date End Date Nithya Cho MD [address] [facility] [address] [place] [address] PCP - General Family Medicine 05/13/20
--- OUTSIDE RECORDS SUMMARY | 2024-11-27 15:53 | XMS_ITS | Clinical Summary ---
Author Organization [facility] Address [address] [place] [address] Care Team Providers Care Cath Lab Tech Name Role Phone Nithya Cho MD Primary Care Provider Social History Tobacco Use Types Packs/Day Years Used Date Smoking Tobacco: Never Assessed Sex and Gender Information Value Date Recorded Sex Assigned at Not on file Gender Identity Not on file Sexual Orientation Not on file Plan of Treatment Health Maintenance Due Date Last Done Comments Hepatitis B Vaccines (1 of 3 - 3-dose series) 1972 Hepatitis C Screening 1972 COVID-19 Vaccine (#1) 03/07/1973 Depression Screening 1984 Preventative Health Evaluation 1990 DTap / Tdap / Td (1 - Tdap) 1991 Cervical Cancer Screening (P ap Smear) 1993 Colon Cancer Screening (Colonoscopy) 2017 Breast Cancer Screening (Mammogram) 2022 Shingrix-Zoster Vaccine (1 of 2) 2022 Influenza Vaccine (#1) 2024 Pneumococcal Vaccine Aged Out No long er eligible based on patient's age to complete this topic RSV Ped < 20 months Aged Out No longe r eligible based on patient's age to complete this topic Care Teams Cath Lab Tech Relationship Specialty Start Date End Date Nithya Cho MD [address] [place] [phone] PCP - General Family Medicine 05/13/20
== END 2024-11-27 15:52 | disposition home or self-care (01) ==
PROVIDERS: Visit Provider Physician Assistant
DX: Z98.1 Arthrodesis status (principal)
CPT/HCPCS: 99213

== ENCOUNTER → 2024-11-27 15:33 | Outpatient (BNV) | payer MEDICAID, SELFPAY | PROVIDERS: Visit Provider Radiology Diagnostic Radiology | DX: Z98.1 Arthrodesis status (principal) | CPT/HCPCS: 72110 ==

== ENCOUNTER 2025-02-13 16:12 | Outpatient (REF) | payer MEDICAID, SELFPAY ==
--- NOTE | ~2025-02-13 | CT_ITS ---
EXAM: CT lumbar spine without contrast TECHNIQUE: Axial imaging was performed from mid T11 through the lower sacrum coccygeal region without IV contrast. Coronal and sagittal reformatted images were generated from the original axial data set. ALARA: The examination used one or more of the following radiation dose reduction techniques: Automated exposure control, iterative reconstruction, and/or adjustment of mA and/or kV. DLP: 777 mGY*cm INDICATION: Z98.1 - Arthrodesis status PRIOR: November 27, 2024 x-ray FINDINGS: There are 5 cag-pob-uzystov lumbar segments. Posterior pedicle screws and rods are placed across L4-5. Hardware is intact. L4-5: There is an interbody cage between L4-5. There appears to be bony bridging across the interbody cage. There is mild subsidence of the cage into the inferior L4 vertebral body. There is chronic bony density across the right facet joint consistent with effusion. There is bridging bone between the inferior tip of the inferior left facet the pars interarticularis surface of the L5 facet. However, there is little to no evidence of bony fusion across the left L4-5 facet articular joint. L5-S1 demonstrates mature bridging bone across the interbody space. There is dense mature bony fusion of the right facet joint and mixed density bony bridging of the left facet joint. S1 demonstrates tracks from removed pedicle screws. CT/CT lumbar spine wo IV con IMPRESSION: PLIF L4-5 with removed screws at S1. L4-5 interbody cage demonstrates mild subsidence into the inferior L4 body. There is evidence of bridging bone across the cage. Additionally, there is evidence of bridging bone across the right facet joint but not the articular surface of the left facet joint. However, there is a spicule of bridging bone extending from the inferior tip of the left facet to the pars interarticularis region of the L5 facet. There is mature fusion of L5-S1. Electronically signed by: Felix Batista MD 02/13/2025 05:57 PM EDT RP
--- OUTSIDE RECORDS SUMMARY | 2025-02-13 16:14 | XMS_ITS | Clinical Summary ---
Author Organization [facility] Address [address] [place] [address] Care Team Providers Care Pharmacy Delivery Driver Name Role Phone Nithya Cho MD Primary Care Provider [phone] Social History Tobacco Use Types Packs/Day Years [...] Vaccines (1 of 2) 2022 COVID-19 Vaccine (1 - 2023-2 5 season) 2024 Depression Screening 07/24/2024 Influenza Vaccine (#1) 2025 HIB Vaccines Aged Out No longer [...] age to complete this topic Care Teams Pharmacy Delivery Driver Relationship Specialty Start Date End Date Nithya Cho MD [address] [facility] [address] [place] [id number] PCP - General Family Medicine 05/13/20
== END 2025-02-13 16:13 | disposition home or self-care (01) ==
LOC: HO.CT 16:12
PROVIDERS: Visit Provider Physician Assistant
DX: Z98.1 Arthrodesis status (principal)
CPT/HCPCS: 72131

== ENCOUNTER → 2025-02-13 16:15 | Outpatient (BNV) | payer MEDICAID, SELFPAY | PROVIDERS: Visit Provider Radiology Diagnostic Radiology | DX: Z98.1 Arthrodesis status (principal) | CPT/HCPCS: 72131 ==

== ENCOUNTER 2025-04-23 13:16 | Outpatient (REF) | payer MEDICAID, SELFPAY ==
--- NOTE | ~2025-04-23 | XR_ITS ---
Examination: 4 view lumbar spine. TECHNIQUE: AP, and lateral: Flexion, neutral, and extension view x-rays of the lumbar spine. Comparison November 27, 2024 INDICATION: Arthrodesis follow-up FINDINGS: Posterior pedicle screws and rods are present at L4-5. There is also interbody spacer at L4-5 and bone graft at L5-S1. There are 5 non-rib bearing lumbar segments. Vertebral body height and alignment is preserved. T12-L1: There is mild disc space narrowing and endplate osteophytes. L1-L2: There is mild disc space narrowing. L2-L3: There is mild disc space narrowing and subtle retrolisthesis that does not change during flexion and extension. L3-L4: There is mild disc space narrowing and subtle retrolisthesis that does not change during flexion and extension. L4-L5: Level is surgically fused and appears similar to the prior study. There is subtle retrolisthesis that does not change with flexion and extension. L5-S1: Level is surgically fused and unchanged from the prior. There is subtle retrolisthesis that does not appreciably move during flexion and extension. XR/XR lumbar spine 4V min IMPRESSION: Surgical fusion at L4-5 and L5-S1 but appears similar to the prior examination. Multilevel mild degenerative changes in the disc spaces of the lumbar spine. No instability during flexion and extension. Electronically signed by: Felix Batista MD 04/23/2025 02:06 PM EDT
== END 2025-04-23 13:17 | disposition home or self-care (01) ==
LOC: HO.HOSX 13:16
PROVIDERS: Visit Provider Physician Assistant
DX: M54.50 Low back pain, unspecified (principal); Z98.1 Arthrodesis status
CPT/HCPCS: 72110; 99212

== ENCOUNTER 2025-04-23 13:16 | Outpatient (AMB) | payer MEDICAID, SELFPAY ==
--- NOTE | 2025-04-23 13:34 | HO.SPINEOV ---
Intake Visit Reasons: [address] f/u with xrays Intake Note: Ms. Suazo is here today for her 1yr F/u, also F/u of CT and x-ray results. Social Group Worker Required: No Allergies mold Allergy (Verified 04/23/25 13:58) Hives Assessment & Plan Assessment & Plan (1) Status post lumbar spinal arthrodesis: Code(s): Z98.1 - Arthrodesis status Category: Medical Plan Procedure: L4-5 Transkambin Lumbar fusion An comes in today for her 1 year follow up visit after having L4-[address] Bagley last year. 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 Since then she has been doing fairly well overall, but did report she has some issues with her right knee causing some increased muscular back / leg pain. We reviewed her CT scan imaging which shows stable placement of surgical instrumentation with some evidence of osseous fusion occuring between instrumentation and interbody cage. No new neurological deficits. The patient rises from a seated position without difficulty. She ambulates well. No assistive devices. There is no need for continued follow up with An. She may follow up in the future on an as needed basis. If she does continue experience worsening pain we may need to re-evaluate her again in the future with repeat CT / MRI. Usually we see a bit more fusion progress at this point based on CT imaging. 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 Oleg Bagley MD,PhD [facility] Orders: Orders XR lumbar spine 4V min Today Z98.1 - Arthrodesis status Coding Level of Care Code Est Pt Level 2 (13861) Diagnoses Status post lumbar spinal arthrodesis Z98.1
--- OUTSIDE RECORDS SUMMARY | 2025-04-23 14:29 | XMS_ITS | Clinical Summary ---
Author Organization [facility] Address [address] [place] [address] Care Team Providers Care Grain Roaster Name Role Phone Nithya Cho MD Primary Care Provider [phone] Social History Tobacco Use Types Packs/Day Years [...] 2022 Zoster Vaccines (1 of 2) 2022 Depression Screening 07/24/2024 COVID-19 Vaccine (1 - 2023-2 5 season) 2025 Influenza Vaccine (#1) 2025 RSV Immunization Adult Patie nts (1 - 1-dose 75+ series) 2047 HIB Vaccines Aged Out No longer eligi [...] age to complete this topic Care Teams Grain Roaster Relationship Specialty Start Date End Date Nithya Cho MD [address] [facility] [address] [place] [id number] PCP - General Family Medicine 05/13/20
--- OUTSIDE RECORDS SUMMARY | 2025-04-23 14:29 | XMS_ITS | Clinical Summary ---
Author Organization [facility] Address [address] [place] [address] Care Team Providers Care Toddler Teacher Name Role Phone Nithya Cho MD Primary [...] (1 of 2) 2022 Influenza Vaccine (#1) 2025 Pneumococcal Vaccine Aged Out No long er eligible based on patient's age to complete this topic RSV Ped < 20 months Aged Out No longe r eligible based on patient's age to complete this topic Care Teams Toddler Teacher Relationship Specialty Start Date End Date Nithya Cho MD [address] [place] [phone] PCP - General Family Medicine 05/13/20
== END 2025-04-23 14:14 | disposition home or self-care (01) ==
LOC: HO.HNS 13:16
PROVIDERS: Visit Provider Physician Assistant
DX: Z98.1 Arthrodesis status (principal)
CPT/HCPCS: 99212

== ENCOUNTER → 2025-04-23 13:34 | Outpatient (BNV) | payer MEDICAID, SELFPAY | PROVIDERS: Visit Provider Radiology Diagnostic Radiology | DX: M43.27 Fusion of spine, lumbosacral region (principal) | CPT/HCPCS: 72110 ==